=== PATIENT | female | born 1995 | race American Indian/Alaskan Native ===

== ENCOUNTER 2017-04-16 16:55 | Emergency (ER) | payer OTHER ==
[2017-04-16 16:59] VITALS: BP 124/70
--- NOTE | 2017-04-16 18:42 | Emergency Department Report ---
Chief Complaint: Extremity Injury, Upper Stated Complaint: BURNING PAIN IN LEFT ARM Time Seen by Provider: 04/16/17 18:30 - HPI History of Present Illness: Dr. Wall dictating a note for Cheri Rosales. Patient is a 22-year-old [place] female complaining of one-week of arm burning. Patient denies any trauma patient does state that she has chronic back pain, mid back that is resolving off for quite some time. Patient states that she is unable to lay on her left arm. Pain is a shooting pain and worse 8 out of 10 currently is a 3 out of 10. Patient states that there is been no swelling. She denies fever chest pain pleuritic or otherwise. - Exam Vital Signs: Vital Signs 04/16/17 16:57 Temperature 97.8 F Pulse Rate 87 Respiratory 16 Rate Blood Pressure 124/70 O2 Sat by Pulse 100 Oximetry Physical Exam: General exam patient is in no acute distress well developed HEENT is normal neck exam there is no swelling redness or deformity for range of motion to her neck back exam normal-appearing back lungs clear to auscultation heart normal heart tones abdomen soft nontender MSE screening note: Focused history and physical exam performed. Due to findings the following was ordered: ED Disposition for MSE Clinical Impression: Cervical radiculopathy Disposition: DC-01 TO HOME OR SELFCARE Is pt being admited?: No Does the pt Need Aspirin: No Condition: Fair Prescriptions: methylPREDNISolone [Medrol] 4 mg PO QAM #1 tab.ds.pk traMADol [Ultram] 50 mg PO Q6HR PRN #12 tablet PRN Reason: Pain
== END 2017-04-16 18:58 | disposition home or self-care (01) ==
LOC: ED 16:55
DX: M54.12 Radiculopathy, cervical region (principal); M54.6 Pain in thoracic spine; M79.602 Pain in left arm
CPT/HCPCS: 99282